=== PATIENT | male | born 1970 | race American Indian/Alaskan Native ===

== ENCOUNTER 2017-03-13 12:50 | Outpatient (CLI) | payer BC ==
--- NOTE | 2017-03-13 13:37 | XRay Report ---
Left knee 2 views: History: Pain in leg. Findings: Mild arthritic changes medial and patellofemoral compartment knee joint. No fracture dislocation or soft tissue calcification. No joint effusion. Impression: Mild arthritic changes. No acute findings.
--- NOTE | 2017-03-14 09:45 | Vascular Lab Report ---
Left Lower Extremity Venous Duplex Study: Reason for Exam: Left leg pain and shortness of breath. Comments on the Right: A limited duplex study was done of the proximal veins of the right lower extremity. All veins visualized are freely compressible without evidence of internal echogenicity. Flow is spontaneous and phasic throughout. No evidence of acute or chronic thrombus is seen in any of the vessels visualized. Comments on the Left: All veins visualized are freely compressible without evidence of internal echogenicity. Flow is spontaneous and phasic throughout. No evidence of acute or chronic thrombus is seen in any of the vessels visualized. Impression: No evidence of acute or chronic deep venous thrombosis in the left lower extremity.
== END 2017-03-13 12:51 | disposition home or self-care (01) ==
LOC: VAS 12:50
PROVIDERS: ATTEND Family Medicine
DX: M79.605 Pain in left leg (principal); R06.02 Shortness of breath